=== PATIENT | male | born 1970 | race African-American/Black ===

== ENCOUNTER 2020-04-25 23:36 | Emergency (ER) | payer MEDICAID ==
[~2020-04-25] VITALS: Ht 182.9 cm; Wt 90.0 kg
[2020-04-26 05:12] VITALS: BP 133/92
== END 2020-04-26 05:14 | disposition home or self-care (01) ==
LOC: ER 23:36
DX: K94.23 Gastrostomy malfunction (principal); F73 Profound intellectual disabilities; G40.909 Epilepsy, unspecified, not intractable, without status epilepticus; F29 Unspecified psychosis not due to a substance or known physiological condition; K21.9 Gastro-esophageal reflux disease without esophagitis; I10 Essential (primary) hypertension
CPT/HCPCS: 93005; 99283

== ENCOUNTER 2021-11-12 07:41 | Emergency (ER) | payer MEDICAID ==
[~2021-11-12] VITALS: Ht 182.9 cm; Wt 78.0 kg
[2021-11-12] MEDS ORDERED: MIDAZOLAM HCL 2 MG/2 ML VIAL IV ONE (10:45)
[2021-11-12] MEDS ORDERED: LEVETIRACETAM 1000MG PREMIX 100 ML IV ONE (10:45)
[2021-11-12 18:00] VITALS: BP 145/90
== END 2021-11-12 18:23 ==
LOC: ER 07:52
DX: K94.23 Gastrostomy malfunction (principal); K21.9 Gastro-esophageal reflux disease without esophagitis; I10 Essential (primary) hypertension
CPT/HCPCS: 82962; 96365; 96375; 99285; J1953; J2250; Z7610